=== PATIENT | female | born 1940 | race Caucasian/White ===

== ENCOUNTER 2018-11-14 20:56 | Observation (INO) ==
[2018-11-14] MEDS ORDERED: ONDANSETRON 4 MG/2 ML VIAL IV ONE (21:11)
[2018-11-14] MEDS: HYDROmorphone 2 MG/ML VIAL IV PRN ×4 (21:22→22:45)
--- NOTE | 2018-11-14 21:24 | Emergency Department Note ---
Upper Extremity HPI - General Source: patient Mode of arrival: ambulatory Limitations: no limitations <Shyam Storey - Last Filed: 11/14/18 21:44> <Sancho Thompson - Last Filed: 11/15/18 02:07> <Radha Braden - Last Filed: 11/15/18 17:51> - General Chief Complaint: Extremity Injury, Upper Stated Complaint: possible humerous fx Time Seen by Provider: 11/14/18 21:03 - History of Present Illness HPI Narrative: Reason for visit: Pt complains of upper L arm pain and injury. Mechanism of in injury is a fall in which she stumbled and fell into a coffee table. Her impact was specifically her L upper arm. She complains of 6/10 pain. This pain increases greatly with movement. Denies numbness in this distal arm. She denies injury to her other extremities. Denies pain in her L shoulder. Denies hitting her head, denies cervical pain. Pt does take eliquis for anti- coagulation. The reason is a past history of cardiac bypass surgery and occasional A-fib. Denies hx of CVA. Denies SOB, Palpations, chest pain. Denies abdominal pain, rib pain or hip pain. Pt is ambulatory and alert. (Shyam Watson) I initially discussed this case with Anson Storey nurse practitioner student and Radha ONEIL. I agree with her evaluation management documentation. We specifically discussed what we needed to do for her. At shift change the patient was checked out to me and I assume full care because her chest x-ray showed left upper opacity concerning for CHF versus pneumonia I visited with the patient some more and got further history. She denies any fever chills shortness of breath recent illness (Sancho Thompson) - Related Data Home Medications Medication Instructions Recorded Confirmed RX: Apixaban [Eliquis] 5 mg PO BID 04/24/16 11/15/18 RX: Ascorbic Acid [Vitamin C] 500 mg PO DAILY 05/03/16 11/15/18 RX: Aspirin [Adult Low Dose 81 mg PO DAILY 05/03/16 11/15/18 Aspirin EC] RX: Atorvastatin [Lipitor] 40 mg PO DAILY 05/03/16 11/15/18 RX: Calcium Carbonate [Calcium] 500 mg PO TID 05/03/16 11/15/18 RX: Cyanocobalamin (Vitamin B-12) 1,000 mcg SL DAILY 05/03/16 11/15/18 [Vitamin B-12] RX: Furosemide [Lasix] 20 mg PO DAILY 05/03/16 11/15/18 RX: Levothyroxine [Synthroid] 150 mcg PO DAILY 05/03/16 11/15/18 RX: Liothyronine [Cytomel] 5 mcg PO DAILY 05/03/16 11/15/18 RX: Losartan Potassium [Cozaar] 25 mg PO DAILY 05/03/16 11/15/18 RX: Metoprolol Tartrate 50 mg PO BID 05/03/16 11/15/18 RX: Potassium Chloride 10 meq PO DAILY 05/03/16 11/15/18 RX: Vitamin B Complex Vit C No.4 150 mg PO DAILY 05/03/16 11/15/18 [Super B Complex] RX: Vitamin D3 5,000 unit PO DAILY 05/03/16 11/15/18 Previous Rx's Medication Instructions Recorded Ciprofloxacin [Cipro] 250 mg PO BID #6 tab 11/15/18 RX: HYDROcodone/APAP 5/325MG 1 tab PO Q4HP PRN #20 tab 11/15/18 [[place] 5-325Mg] Allergies Allergy/AdvReac Type Severity Reaction Status Date / Time No Known Drug Allergies Allergy Verified 05/03/16 15:34 Review of Systems Constitutional: Denies: fever, chills, weakness Eyes: Denies: eye pain, vision change ENT ED: Denies: ear pain, dental pain Cardiovascular: Denies: chest pain, palpitations, edema Respiratory: Denies: shortness of breath Gastrointestinal: Denies: abdominal pain, nausea, vomiting Genitourinary: Denies: urgency, frequency Musculoskeletal: Reports: other (Upper L arm pain). Denies: back pain, joint pain Integumentary: Denies: rash, lesions Neurological: Denies: headache, weakness, numbness, paresthesias, confusion, diz ziness Psychiatric: Denies: anxiety Endocrine: Denies: fatigue Hematological/Lymphatic: Reports: easy bleeding, easy bruising. Denies: lymphadenopathy Allergic/Immunologic: Denies: facial swelling, urticaria <Brown,Shyam - Last Filed: 11/14/18 21:44> Past Medical History - Past Medical History Medical history: Reports: non-contributory, other (She is on blood thinners. Poor historian and does not have past medical history list with her.) Surgical history ED: Reports: non-contributory - Social History smoking status: Former smoker Alcohol use: Reports: None Drug use: Reports: none <Shyam Storey - Last Filed: 11/14/18 21:44> - Past Medical History Medical history: Reports: atrial fibrillation, hypertension, hypothyroidism, other Surgical history ED: Reports: coronary bypass (CABG) <Lyric Thompsonshua Davi - Last Filed: 11/15/18 02:07> Physical Exam Limitations: no limitations General appearance: alert Head: atraumatic, normocephalic, normal inspection Eye: Present: normal appearance, PERRL, visual harris intact. Absent: nystagmus, periorbital swelling, periorbital tenderness ENT: normal exam, normal oropharynx, mucous membranes moist Neck: Present: normal inspection. Absent: tenderness, lymphadenopathy Chest: Present: normal inspection, symmetric chest wall rise. Absent: tend erness Respiratory: Present: normal lung sounds bilaterally. Absent: respiratory distress Cardiovascular: Present: normal rhythm, tachycardia. Absent: regular rate Abdominal: Absent: tenderness, guarding Shoulder: Absent: full ROM (due to upper arm pain), laceration, ecchymosis, deformity, dislocation, tenderness over AC joint Arm: Present: tenderness (L upper arm (Humerus)), swelling, deformity. Absent: normal inspection, full ROM, erythema Elbow: Present: normal inspection. Absent: tenderness Forearm/Wrist: Present: normal inspection. Absent: tenderness, swelling Hand: Present: normal inspection. Absent: tenderness Vascular: Normal: capillary refill, radial pulse, ulnar pulse Back: Present: normal inspection. Absent: tenderness, vertebral tenderness Neurological: Present: alert, oriented X3, CN II-XII intact Psychiatric: Present: normal affect, normal mood Skin: Present: warm, dry, intact <RaleighShyam - Last Filed: 11/14/18 21:44> Course <Brian Storeyk - Last Filed: 11/14/18 21:44> <Radha Braden - Last Filed: 11/15/18 17:51> Course Narrative: Pt to receive pain medication and have xray performed. Xray results show displaced fracture. will consult MD Pt found to be tachycardic on the child monitor. Obtaining 12 lead ECG to assess rhythm. Pt denies palpations. (Shyam Storey) EKG shows patient given Cardizem bolus and started on a Cardizem drip. At 1T 153 I did speak with orthopedics, Dr. Cohen. He states this is nonsurgical, to splint with surgery sugar tong upper arm A. fib in the 160s. secure to her side. She can follow-up at the clinic outpatient to have it casted. @[address] Thompson to assume care due to shift change. Dr Weiss, hospitalist agrees to accept pt Agree with HPI, ROS, PMH, Exam, course and Plan by IRRIGATION INSTALLATION SPECIALIST student Shyam (Radha Braden) Vital Signs Temperature 98.4 F 11/14/18 20:58 Pulse Rate 135 H 11/14/18 20:58 Respiratory Rate 20 11/14/18 20:58 Blood Pressure 134/92 11/14/18 20:58 Pulse Oximetry (%) 98 11/14/18 20:58 Temperature 98.0 F 11/15/18 13:38 Pulse Rate 71 11/15/18 13:38 Respiratory Rate 17 11/15/18 13:38 Blood Pressure 121/76 11/15/18 13:38 Pulse Oximetry (%) 97 11/15/18 13:38 Extremity Injury, Upper - Lab Data Lab results reviewed: Yes I reviewed the patient's lab results. Result diagrams: 11/14/18 22:05 11/14/18 22:05 - Radiology Data Radiology results reviewed: Yes I reviewed the patient's radiology results. - EKG Data EKG attestation: Yes I reviewed and interpreted this EKG. <Sancho Thompson - Last Filed: 11/15/18 02:07> - Lab Data Result diagrams: 11/14/18 22:05 11/14/18 22:05 - Radiology Data Radiology results reviewed: Yes I reviewed the patient's radiology results. <Radha Braden - Last Filed: 11/15/18 17:51> - Lab Data Lab Results 11/14/18 11/14/18 11/14/18 Range/Units 22:05 22:05 22:05 WBC 11.6 H (4.5-11.0) K/mcL RBC 3.82 L (4.00-5.20) M/mcL Hgb 12.0 (12.0-15.0) g/dL Hct 36.2 (36.0-48.0) % MCV 94.7 (80.0-100.0) fL MCH 31.4 (26.0-34.0) pg MCHC 33.2 (31.0-36.0) g/dL RDW 13.9 (11.5-14.5) % Plt Count 242 (140-440) K/mcL MPV 10.1 (7.4-10.4) fL Gran % 71.2 (38.0-78.0) % Lymph % (Auto) 19.8 (15.5-49.0) % Emery % (Auto) 7.2 (1.0-12.0) % Eos % (Auto) 1.5 (0.0-7.0) % Baso % (Auto) 0.3 (0.0-2.0) % Gran # 8.3 H (1.8-8.0) K/mcL Lymph # (Auto) 2.3 (1.5-4.8) K/mcL Emery # (Auto) 0.8 (0.1-0.9) K/mcL Eos # (Auto) 0.2 (0.0-0.7) K/mcL Baso # (Auto) 0 (0.0-0.3) K/mcL Sodium 139 (133-145) mmol/L Potassium 4.3 (3.3-5.1) mmol/L Chloride 102 (96-108) mmol/L Carbon Dioxide 20 L (22-30) mmol/L Anion Gap 17.0 H (8-16) BUN 18 (8-23) mg/dl Creatinine 0.9 (0.6-1.1) mg/dl GFR Calculation 61 Glucose 132 H (70-105) mg/dL Calcium 8.7 (8.6-10.4) mg/dl Magnesium 1.7 (1.6-2.5) mg/dL Total Bilirubin 0.3 (0.0-1.0) mg/dL AST 28 (0-37) U/l ALT 27 (0-40) U/l Alkaline Phosphatase 95 (39-117) U/L Total Creatine Kinase 87 (24-170) IU/L CK-MB (CK-2) 3.0 H (0-2.9) ng/ml Myoglobin 113 H (25-58) ng/ml Troponin T < 0.01 (0-0.03) ng/ml NT-Pro-B Natriuret Pep (0-450) pg/ml Total Protein 6.9 (5.9-8.4) gm/dL Albumin 4.0 (3.2-5.2) gm/dL Globulin 2.9 (2.2-3.7) gm/dL Albumin/Globulin Ratio 1.4 (1.0-2.3) TSH 10.40 H (0.27-5.01) uIU/ml Thyroxine (T4) (5.0-12.0) ug/dl 11/14/18 11/14/18 Range/Units 22:05 22:05 WBC (4.5-11.0) K/mcL RBC (4.00-5.20) M/mcL Hgb (12.0-15.0) g/dL Hct (36.0-48.0) % MCV (80.0-100.0) fL MCH (26.0-34.0) pg MCHC (31.0-36.0) g/dL RDW (11.5-14.5) % Plt Count (140-440) K/mcL MPV (7.4-10.4) fL Gran % (38.0-78.0) % Lymph % (Auto) (15.5-49.0) % Emery % (Auto) (1.0-12.0) % Eos % (Auto) (0.0-7.0) % Baso % (Auto) (0.0-2.0) % Gran # (1.8-8.0) K/mcL Lymph # (Auto) (1.5-4.8) K/mcL Emery # (Auto) (0.1-0.9) K/mcL Eos # (Auto) (0.0-0.7) K/mcL Baso # (Auto) (0.0-0.3) K/mcL Sodium (133-145) mmol/L Potassium (3.3-5.1) mmol/L Chloride (96-108) mmol/L Carbon Dioxide (22-30) mmol/L Anion Gap (8-16) BUN (8-23) mg/dl Creatinine (0.6-1.1) mg/dl GFR Calculation Glucose (70-105) mg/dL Calcium (8.6-10.4) mg/dl Magnesium (1.6-2.5) mg/dL Total Bilirubin (0.0-1.0) mg/dL AST (0-37) U/l ALT (0-40) U/l Alkaline Phosphatase (39-117) U/L Total Creatine Kinase (24-170) IU/L CK-MB (CK-2) (0-2.9) ng/ml Myoglobin (25-58) ng/ml Troponin T (0-0.03) ng/ml NT-Pro-B Natriuret Pep 1837.0 H (0-450) pg/ml Total Protein (5.9-8.4) gm/dL Albumin (3.2-5.2) gm/dL Globulin (2.2-3.7) gm/dL Albumin/Globulin Ratio (1.0-2.3) TSH (0.27-5.01) uIU/ml Thyroxine (T4) 9.0 (5.0-12.0) ug/dl - Radiology Data X-ray of the left humerus shows midshaft fracture mildly displaced Chest x-ray shows left lung opacity concerning for CHF versus pneumonia. CT is ordered to further sort this out (Sancho Thompson) - EKG Data EKG results narrative: EKG shows a rate of 152 A. fib with rapid ventricular response (Sancho Thompson) Disposition <Shyam Storey - Last Filed: 11/14/18 21:44> Pt seen by IRRIGATION INSTALLATION SPECIALIST/PA only: No <Sancho Thompson - Last Filed: 11/15/18 02:07> Pt seen by IRRIGATION INSTALLATION SPECIALIST/PA only: No <Radha Braden - Last Filed: 11/15/18 17:51> Clinical Impression: Atrial fibrillation with rapid ventricular response Fracture of humerus Qualifiers: Encounter type: initial encounter Humerus Location: shaft Fracture type: closed Fracture morphology: oblique Fracture alignment: displaced Laterality: left Qualified Code(s): S42.332A - Displaced oblique fracture of shaft of humerus, left arm, initial encounter for closed fracture Summary: Patient was discussed with Dr. Agarwal, orthopedist on-call, who advised us to put her in a sugar tong humerus splint However patient was found to be in atrial fibrillation with rapid ventricular response so we started diltiazem drip after bolus given. Laboratory was ordered along with EKG chest x-ray Hospitalist, Dr. Weiss, was consulted as well and he will admit the patient for further care and evaluation of her atrial fibrillation and pneumonia here. Chest x-ray was pending at the time of her admission by Dr. Weiss. I reviewed this as she was still in the ER and chest x-ray was concerning for left upper lobe pneumonia so blood cultures were ordered and antibiotics per [facility]- [facility] antibiotiogram-that is ceftriaxone plus azithromycin for non-ICU community-acquired pneumonia. CT was ordered for further sorting out possible left upper lobe pneumonia- [facility] read on the CT scan did not show evidence of consolidating infiltrate. I briefly relayed the news to Dr. Weiss (Sancho Thompson) Disposition: Xfer As Inpt ([facility]) Condition: Good
[2018-11-14] MEDS ORDERED: DILTIAZEM 25 MG/5 ML VIAL IV ONE (21:52)
[2018-11-14] MEDS ORDERED: DILTIAZEM 125 MG in DEXTROSE 5% IN WATER 100 ML IV SCH (22:00)
--- NOTE | 2018-11-14 22:06 | Internal Med History&Physical ---
Medical - H&P: [facility] Patient information: Note initiated : 11/14/18 at 10:02 pm Service Date, if different from initiated Date: [] Patient: Destiny Zaidi a 78 y/o F admitted on for possible humerous fx. Chief Complaint: [] History of present illness: Ms. Zaidi is a 78 year old F Presents to the ER after tripping and falling on left arm resulting in left humerus fracture. During her ER visit she is found to be in A. fib RVR with rates of 160. Blood pressure was stable. She is denies chest pain or shortness of breath. Denies palpitations. Denies missing her medications. She is on Eliquis and Lopressor for her A. fib RVR. She was started on Cardizem bolus in the ED. Patient tripped over her shoe falling on her left arm. Immediate pain and deformity. Patient denies dizziness lightheadedness chest pain shortness of breath. Denies palpitations. Denies missing medications. Case is discussed with orthopedic surgery who stated nonsurgical this time and to place in a sugar tong and follow-up in the office. Admission requested for A. fib RVR on Cardizem drip. Review of Systems: Pertinent positives as above. Denies headache/fever/chills/nausea/vomiting/chest or abdominal pain/cough/dys pnea/diarrhea. Many 10 point review of system reviewed negative Medical - H&P: PMH Medical history: Medical History CABG x3 vessel Atrial fibrillation Hypothyroidism hypertension Peripheral edema Past surgical history: CABG x3 vessel Family history: Mother mother had anxiety father's history is unknown Social history: Former smoker rare alcohol lives at home with her Medical - H&P: Meds Home Medications Medication Instructions Recorded Confirmed Type Apixaban [Eliquis] 5 mg PO BID 04/24/16 05/05/16 History Ascorbic Acid [Vitamin C] 500 mg PO DAILY 05/03/16 05/05/16 History Aspirin [Adult Low Dose Aspirin EC] 81 mg PO DAILY 05/03/16 05/05/16 History Atorvastatin [Lipitor] 40 mg PO DAILY 05/03/16 05/05/16 History Calcium Carbonate [Calcium] 500 mg PO TID 05/03/16 05/05/16 History Cyanocobalamin (Vitamin B-12) 1,000 mcg SL DAILY 05/03/16 05/05/16 History [Vitamin B-12] Ferrous Sulfate 325 mg PO DAILY 05/03/16 05/05/16 History Furosemide [Lasix] 20 mg PO DAILY 05/03/16 05/05/16 History Iodine [Kelp] 75 mcg PO DAILY 05/03/16 05/05/16 History Levothyroxine [Synthroid] 150 mcg PO DAILY 05/03/16 05/05/16 History Liothyronine [Cytomel] 5 mcg PO DAILY 05/03/16 05/05/16 History Losartan Potassium [Cozaar] 25 mg PO DAILY 05/03/16 05/05/16 History Metoprolol Tartrate 50 mg PO BID 05/03/16 05/05/16 History Potassium Chloride 10 meq PO DAILY 05/03/16 05/05/16 History Vitamin B Complex Vit C No.4 150 mg PO DAILY 05/03/16 05/05/16 History [Super B Complex] Vitamin D3 5,000 unit PO DAILY 05/03/16 05/05/16 History Benzocaine/Menthol [Cepacol] 1 lozenge PO PRN PRN #0 lozenge 05/05/16 Rx Doxycycline Hyclate [Vibramycin] 100 mg PO BID #20 capsule 05/06/16 Rx HYDROcodone/APAP 5/325MG [[place] 1 tab PO Q6HP PRN #30 tablet 05/06/16 Rx 5/325Mg] Allergies Allergy/AdvReac Type Severity Reaction Status Date / Time No Known Drug Allergies Allergy Verified 05/03/16 15:34 Medical - H&P: Exam - Constitutional Vitals: Temp Pulse Resp BP Pulse Ox 98.4 F 135 H 20 134/92 98 11/14/18 20:58 11/14/18 20:58 11/14/18 20:58 11/14/18 20:58 11/14/18 20:58 Exam: General: Alert, Awake, No acute Distress Eyes/N/T: EOMI, PEERL, DMM Head/Neck: neck supple, normocephalic atraumatic CV: tachy irreg irreg, No murmurs, Pulm: Clear b/l, no wheezing/rhonchi/rales Abd: soft, nontender, +BS x4 Ext: no clubbing/cyanosis/edema to LE's, left arm in sling Neuro: Alert, no focal deficits, moves all extremities, CN 2-12 grossly intact, symmetrical strength b/l upper/lower, sensations intact b/l upper/lower Skin: warm/dry Medical - H&P: Reslt - Labs CBC & Chem 7: 11/14/18 22:05 11/14/18 22:05 - EKG Data EKG comments: 11/14/18 22:04 Displaced and angulated left humerus fracture on x-ray - Impressions Left humerus fracture Medical - H&P: A/P - Narrative A/P Narrative: A: *Afib w/rvr: *Left humerus fracture after a trip and fall ground-level: *HTN: *Hypothyroidism: * * P: -Diltiazem drip, wean off to home Lopressor -Check TSH and mag -Pending chest x-ray and labs -f/u with Ortho outpt, sugar-tong splint -Pain control - -ppx: Home Eliquis
[2018-11-14] MEDS ORDERED: cefTRIAXone 1 GM VIAL IV ONE (22:56)
[2018-11-14] MEDS ORDERED: AZITHROMYCIN 250 MG TABLET PO ONE (22:56)
[2018-11-14 23:05] LABS: Basophils # (Auto) 0 K/mcL (0.0-0.3); Basophils % (Auto) 0.3 % (0.0-2.0); Eosinophils # (Auto) 0.2 K/mcL (0.0-0.7); Eosinophils % (Auto) 1.5 % (0.0-7.0); Granulocytes % (Auto) 71.2 % (38.0-78.0); Hematocrit 36.2 % (36.0-48.0); Lymphocytes # (Auto) 2.3 K/mcL (1.5-4.8); Lymphocytes % (Auto) 19.8 % (15.5-49.0); Mean Cell Volume 94.7 fL (80.0-100.0); Mean Corpuscular HGB Conc 33.2 g/dL (31.0-36.0); Mean Platelet Volume 10.1 fL (7.4-10.4); Monocytes # (Auto) 0.8 K/mcL (0.1-0.9); Monocytes % (Auto) 7.2 % (1.0-12.0); Platelet Count 242 K/mcL (140-440); RBC 3.82 M/mcL (4.00-5.20); Red Cell Distribution Width 13.9 % (11.5-14.5); WBC 11.6 K/mcL (4.5-11.0)
[2018-11-14] MEDS ORDERED: HYDROmorphone 2 MG/ML VIAL IV PRN (23:23)
[2018-11-14 23:30] LABS: Myoglobin 113 ng/ml (25-58)
[2018-11-14 23:44] LABS: ALT/SGPT 27 U/l (0-40); AST/SGOT 28 U/l (0-37); Albumin/Globulin Ratio 1.4 (1.0-2.3); Alkaline Phosphatase 95 U/L (39-117); Bilirubin,Total 0.3 mg/dL (0.0-1.0); Blood Urea Nitrogen 18 mg/dl (8-23); Calcium 8.7 mg/dl (8.6-10.4); Carbon Dioxide 20 mmol/L (22-30); Chloride 102 mmol/L (96-108); Creatine Kinase 87 IU/L (24-170); Globulin 2.9 gm/dL (2.2-3.7); Glomerular Filtration Rate 61; Glucose 132 mg/dL (70-105); Magnesium 1.7 mg/dL (1.6-2.5); Potassium 4.3 mmol/L (3.3-5.1); Sodium 139 mmol/L (133-145)
[2018-11-15] MEDS ORDERED: POTASSIUM CHLORIDE 40 MEQ in DEXTROSE 5% IN WATER 500 ML IV PRN (00:24)
[2018-11-15] MEDS ORDERED: MAGNESIUM SULFATE 2 GM/50 ML BAG IV PRN (00:24)
[2018-11-15] MEDS ORDERED: SENNOSIDES 1 TABLET PO PRN (00:24)
[2018-11-15] MEDS ORDERED: ACETAMINOPHEN 325 MG TABLET PO PRN (00:24)
[2018-11-15] MEDS ORDERED: diphenhydrAMINE 25 MG CAPSULE PO PRN (00:24)
[2018-11-15] MEDS ORDERED: IPRATROPIUM/ALBUTEROL 3 ML AMPUL.NEB NEB PRN (00:24)
[2018-11-15] MEDS ORDERED: POTASSIUM CHLORIDE 20 MEQ TABLET PO PRN ×2 (00:24)
[2018-11-15] MEDS ORDERED: ONDANSETRON 4 MG/2 ML VIAL IV PRN (00:24)
[2018-11-15] MEDS ORDERED: LACTULOSE 20 GM/30 ML ORAL.SOL PO PRN (00:24)
[2018-11-15] MEDS ORDERED: 0.9 % SODIUM CHLORIDE 1,000 ML IV SCH (00:24)
[2018-11-15] MEDS ORDERED: METOCLOPRAMIDE 10 MG/2 ML VIAL IV PRN (00:24)
[2018-11-15] MEDS ORDERED: POLYETHYLENE GLYCOL 3350 17 GM PACKET PO PRN (00:24)
[2018-11-15] MEDS ORDERED: PROCHLORPERAZINE 10 MG/2 ML VIAL IV PRN (00:24)
[2018-11-15] MEDS ORDERED: IOPAMIDOL 100 ML BOTTLE IV ONE (00:31)
[2018-11-15] MEDS ORDERED: diphenhydrAMINE 25 MG CAPSULE ONE (00:33)
[2018-11-15] MEDS ORDERED: METOPROLOL TARTRATE 50 MG TABLET ONE (00:33)
[2018-11-15] MEDS: MELATONIN 3 MG TABLET PO ONE ×2 (00:58→02:24)
[2018-11-15] MEDS: METOPROLOL TARTRATE 50 MG TABLET PO SCH ×2 (00:59→09:17)
[2018-11-15] MEDS: diphenhydrAMINE 25 MG CAPSULE PO ONE ×2 (00:59→02:24)
[2018-11-15] MEDS ORDERED: HYDROcodone/APAP 5/325MG TABLET PO ONE (02:40)
[2018-11-15] MEDS: HYDROcodone/APAP 5/325MG TABLET PO PRN ×2 (02:41→09:16)
--- NOTE | 2018-11-15 05:54 | Cat Scan Report ---
CLINICAL INFORMATION: pneumonia COMPARISON: Chest x-ray dated 11/14/2018 TECHNIQUE: Axial contrast enhanced images through the chest. Sagittally and coronally reformatted images. MIP reformatted images. 80 mL contrast material injected intravenously. FINDINGS: Suboptimal examination due to shallow inspiration and inability to suspend respiration. Low volume lungs. There is mild left lower lobe, not basilar atelectasis. There is no consolidation. No CT evidence for pneumonia. There is no pulmonary parenchymal mass or significant emphysematous change. Main pulmonary artery, right pulmonary artery, left pulmonary artery are negative. No intraluminal filling defects. No lobar or segmental abnormalities. Previous median sternotomy. There is extensive coronary artery calcification. There is generalized cardiomegaly. There is only mild reflux of contrast material into the inferior vena cava. There is no pleural effusion. There is no pericardial effusion. There is right convex thoracic scoliosis. No acute thoracic compression fracture. Upper abdomen is negative. There is a benign right renal cyst measuring 14 mm. There is calcification at the origin of both renal arteries and stenosis is suspected. Examination was initially interpreted by [facility] IMPRESSION: 1. Limited evaluation. No pulmonary embolism identified. 2. No focal pulmonary parenchymal infiltrate or mass The exam was performed using radiation dose optimization techniques including, but not limited to, automated exposure control, adjustment of the mA and/or kV according to patient size and use of iterative reconstruction technique. Interpreted and Authenticated by: Broderick Pandya 11/15/18
[2018-11-15] MEDS ORDERED: 0.9 % SODIUM CHLORIDE 10 ML SYRINGE IV SCH (06:00)
--- NOTE | 2018-11-15 06:06 | XRay Report ---
INDICATION: Chest pain TECHNIQUE: AP chest x-ray,portable semiupright COMPARISON: None FINDINGS:Previous median sternotomy. There is thoracolumbar scoliosis. Inspiration is less than optimal. No focal pulmonary parenchymal consolidation. There is cardiomegaly. No definite pulmonary edema. No evidence for pleural effusion. IMPRESSION: 1. Cardiomegaly. No detectable pulmonary edema 2. No focal pulmonary parenchymal infiltrate Interpreted and Authenticated by: Broderick Pandya 11/15/18
--- NOTE | 2018-11-15 06:14 | XRay Report ---
CLINICAL INFORMATION: Arm injury TECHNIQUE: 2 view left humerus COMPARISON: None. FINDINGS: Orthogonal views were not obtained. Spiral fracture of the left humeral diaphysis. There is lateral angulation and displacement. Left humeral head appears intact. No glenohumeral dislocation. IMPRESSION: 1. Spiral fracture of the left humeral diaphysis 2. Lateral displacement and angulation Interpreted and Authenticated by: Broderick Pandya 11/15/18
--- NOTE | 2018-11-15 07:23 | Internal Med Progress Note ---
Medical - PN: Subj Patient information: Note initiated : 11/15/18 at 7:15 am Service Date, if different from initiated Date: [] Patient: Destiny Zaidi a 78 y/o F admitted on 11/15/18 for possible humerous fx. Chief Complaint: [] Interval history: Ms. Zaidi is a 78 year old F Presents to the ER after tripping and falling on left arm resulting in left humerus fracture. During her ER visit she is found to be in A. fib RVR with rates of 160. Blood pressure was stable. She is denies chest pain or shortness of breath. Denies palpitations. Denies missing her medications. She is on Eliquis and Lopressor for her A. fib RVR. She was started on Cardizem bolus in the ED. Patient tripped over her shoe falling on her left arm. Immediate pain and deformity. Patient denies dizziness lightheadedness chest pain shortness of breath. Denies palpitations. Denies missing medications. Case is discussed with orthopedic surgery who stated nonsurgical this time and to place in a sugar tong and follow-up in the office. Admission requested for A. fib RVR on Cardizem drip. 11/15 Feeling better this morning. Left arm pain relatively controlled. She was hypoxic leaving the ED last night. However she did get 1/2 mg of Dilaudid during the evening and this morning she is been on room air for the past couple hours doing well. Diltiazem drip was stopped early this morning with rates controlled at this time. Nurse ran urinalysis because of foul odor in her urine. Review of Systems: denies headache/fever/chills/nausea/vomiting/chest or abdominal pain/cough/dyspnea/diarrhea. Otherwise see above. - Constitutional Vitals: Vital Signs Temp Pulse Resp BP Pulse Ox 98.0 F 43 L 25 H 101/52 98 11/15/18 04:02 11/15/18 05:01 11/15/18 05:01 11/15/18 05:01 11/15/18 05:01 Period Temp Pulse Resp BP Sys/Gray Pulse Ox Last 24 Hr 97.4 F-98.4 F 31-156 9-38 84-136/48-97 74-98 Intake and Output 11/14/18 11/15/18 11/15/18 21:59 05:59 13:59 Intake Total 37 Balance 37 Weight 73.482 kg 72.983 kg Intake & Output: Intake & Output 11/14/18 11/15/18 11/15/18 21:59 05:59 13:59 Intake Total 37 Balance 37 Weight 73.482 kg 72.983 kg Intake: IV 37 Cardizem 125 mg In Dextrose 5% 6 in Water 100 ml @ 5 MG/HR 5 mls /hr IV Q12H [facility] Rx#:[id number] Exam: General: Alert, Awake, No acute Distress Eyes/N/T: EOMI, Head/Neck: neck supple, CV: irreg irreg, No murmurs, Pulm: Clear b/l, no wheezing/rhonchi/rales Abd: soft, nontender, +BS x4 Ext: no clubbing/cyanosis/edema, left arm in sling Neuro: Alert, no focal deficits, moves all extremities, Skin: warm/dry Medical - PN: Obj Da - Labs CBC & Chem 7: 11/14/18 22:05 11/14/18 22:05 Labs: Abnormal Lab Results 11/14/18 11/14/18 11/14/18 22:05 22:05 22:05 WBC 11.6 H RBC 3.82 L Gran # 8.3 H Carbon Dioxide 20 L Anion Gap 17.0 H Glucose 132 H CK-MB (CK-2) 3.0 H Myoglobin 113 H NT-Pro-B Natriuret Pep 1837.0 H TSH 10.40 H Meds: Medications Acetaminophen (Tylenol) 650 mg PO Q6HP PRN PRN Reason: PAIN/FEVER > 101 Hydrocodone Bitart/Acetaminophen ([place] 5/325mg) 1 tab PO Q4HP PRN PRN Reason: PAIN LEVEL 3-6 Last Admin: 11/15/18 02:41 Dose: 1 tab Documented by: Albuterol/Ipratropium (Duoneb) 3 ml NEB Q4HP PRN PRN Reason: Shortness Of Breath Diphenhydramine HCl (Benadryl) 50 mg PO HSP PRN PRN Reason: Insomnia Docusate Sodium (Colace) 100 mg PO BID [facility] Diltiazem HCl 125 mg/ Dextrose 125 mls @ 5 mls/hr IV Q12H [facility]; Protocol Potassium Chloride 40 meq/ (Dextrose) 520 mls @ 130 mls/hr IV UD PRN PRN Reason: Potassium < 3 Magnesium Sulfate (Magnesium Sulfate) 2 gm in 50 mls @ 50 mls/hr IV UD PRN PRN Reason: Magnesium </= 1.6 Sodium Chloride (Sodium Chloride 0.9%) 1,000 mls @ 75 mls/hr IV .[id number] [facility] Stop: 11/15/18 13:43 Last Admin: 11/15/18 00:55 Dose: 75 mls/hr Documented by: Lactulose (Cephulac) 10 gm PO DAILYP PRN PRN Reason: Constipation Metoclopramide HCl (Reglan) 10 mg IV Q6HP PRN PRN Reason: Nausea And Vomiting Metoprolol Tartrate (Lopressor) 50 mg PO BID [facility] Last Admin: 11/15/18 00:59 Dose: 50 mg Documented by: Morphine Sulfate (Morphine) 0 mg IV Q3HP PRN PRN Reason: Pain Ondansetron HCl (Zofran) 4 mg IV Q4HP PRN PRN Reason: Nausea And Vomiting Polyethylene Glycol (Miralax) 17 gm PO DAILYP PRN PRN Reason: Constipation Potassium Chloride (Kdur) 40 meq PO UD PRN PRN Reason: Potassium is 3-3.5 Potassium Chloride (Kdur) 40 meq PO UD PRN PRN Reason: Potassium < 3 Prochlorperazine (Compazine) 10 mg IV Q6HP PRN PRN Reason: Nausea And Vomiting Senna (Senokot) 2 tab PO HSP PRN PRN Reason: Constipation Sodium Chloride (Saline Flush) 10 ml IV Q8 [facility] Last Admin: 11/15/18 05:45 Dose: 10 ml Documented by: Medical - PN: A/P - Time Spent With Patient Total time spent is greater than 50% in coordination of care (as documented) at patient's floor/unit and/or counseling patient: - Narrative A/P Narrative: A: *Afib w/rvr: now rate controlled -dilt gtt off -tsh high, mag wnl *acute hypoxic resp failure when leaving ED: 2/ IV narcotics -CT chest unremarkable, -on room air with good sats this morning *Left humerus fracture after a trip and fall ground-level: *HTN: *Hypothyroidism: * P: -Diltiazem drip weaned off to home Lopressor -Check T4 -f/u with Ortho outpt, sugar-tong splint -Pain control -med clarification -f/u with PCP regarding thyroid labs -ppx: Home Eliquis
[2018-11-15] MEDS ORDERED: POTASSIUM CHLORIDE 10 MEQ TABLET PO SCH (08:00)
[2018-11-15] MEDS ORDERED: CALCIUM CARBONATE 500 MG TAB.CHEW PO SCH (09:00)
[2018-11-15] MEDS ORDERED: LEVOTHYROXINE 150 MCG TABLET PO SCH (09:00)
[2018-11-15] MEDS ORDERED: ATORVASTATIN 20 MG TABLET PO SCH (09:00)
[2018-11-15] MEDS ORDERED: LIOTHYRONINE 5 MCG TABLET PO SCH (09:00)
[2018-11-15] MEDS ORDERED: FUROSEMIDE 20 MG TABLET PO SCH (09:00)
[2018-11-15] MEDS ORDERED: DOCUSATE SODIUM 100 MG CAPSULE PO SCH (09:00)
[2018-11-15] MEDS ORDERED: METOPROLOL TARTRATE 50 MG PO SCH (09:00)
[2018-11-15] MEDS ORDERED: LOSARTAN 25 MG TABLET PO SCH (09:00)
[2018-11-15] MEDS ORDERED: MAGNESIUM SULFATE 8.12 MEQ in DEXTROSE 5% IN WATER 50 ML IV ONE (09:11)
[2018-11-15] MEDS ORDERED: DILTIAZEM 125 MG in DEXTROSE 5% IN WATER 100 ML IV SCH (10:00)
[2018-11-15 10:05] LABS: Appearance,Urine CLEAR; Bacteria,Urine 0 /hpf (0); Bilirubin,Urine NEG (NEG); Color,Urine YELLOW; Culture Indicated,Urine NO; Glucose,Urine (UA) NEGATIVE (NEG); Ketones,Urine NEG (NEG); Leukocyte Esterase,Urine 250 /uL (NEG); Mucus,Urine FEW /hpf (0); Nitrate,Urine NEG (NEG); Protein,Urine 30 mg/dL (NEG); Urine Blood NEG mg/dL (<0.03); Urine RBC 1 /hpf (0-1); Urine Squamous Epithelial Cell 7 /hpf (0-4); Urine WBC 13 /hpf (0-4); Urobilinogen,Urine NEG (NEG)
--- NOTE | 2018-11-15 10:17 | Discharge Summary ---
Medical - DS: Prov Patient information: Note initiated : 11/15/18 at 10:13 am Service Date, if different from initiated Date: [] Patient: Destiny Zaidi 78 y/o F admitted on 11/15/18 for possible humerous fx. Chief Complaint: [] Date of admission: 11/15/18 00:24 Discharge date: 11/15/18 Primary care physician: Adina Driver Consults: 11/14/18 Consult to Physician [CONS] Stat Comment: Consulting Provider: Evaristo Agarwal Reason For Exam: Physician to Consult Medical - DS: Meds - Discharge Medications Prescriptions: Ciprofloxacin [Cipro] 250 mg PO BID #6 tab HYDROcodone/APAP 5/325MG [[place] 5-325Mg] 1 tab PO Q4HP PRN #20 tab PRN Reason: Pain Level 3-6 Active and Home Medications: Home Medications Apixaban [Eliquis] 5 mg PO BID 04/24/16 [History Confirmed 11/15/18 Last Taken 05/04/16] Ascorbic Acid [Vitamin C] 500 mg PO DAILY 05/03/16 [History Confirmed 11/15/18 Last Taken 05/04/16] Aspirin [Adult Low Dose Aspirin EC] 81 mg PO DAILY 05/03/16 [History Confirmed 11/15/18 Last Taken 05/04/16] Atorvastatin [Lipitor] 40 mg PO DAILY 05/03/16 [History Confirmed 11/15/18 Last Taken 05/04/16] Calcium Carbonate [Calcium] 500 mg PO TID 05/03/16 [History Confirmed 11/15/18 Last Taken 05/04/16] Cyanocobalamin (Vitamin B-12) [Vitamin B-12] 1,000 mcg SL DAILY 05/03/16 [History Confirmed 11/15/18 Last Taken 05/04/16] Furosemide [Lasix] 20 mg PO DAILY 05/03/16 [History Confirmed 11/15/18 Last Taken 05/04/16] Levothyroxine [Synthroid] 150 mcg PO DAILY 05/03/16 [History Confirmed 11/15/18 Last Taken 05/04/16] Liothyronine [Cytomel] 5 mcg PO DAILY 05/03/16 [History Confirmed 11/15/18 Last Taken 05/04/16] Losartan Potassium [Cozaar] 25 mg PO DAILY 05/03/16 [History Confirmed 11/15/18 Last Taken 05/05/16] Metoprolol Tartrate 50 mg PO BID 05/03/16 [History Confirmed 11/15/18 Last Taken 05/05/16] Potassium Chloride 10 meq PO DAILY 05/03/16 [History Confirmed 11/15/18 Last Taken 05/04/16] Vitamin B Complex Vit C No.4 [Super B Complex] 150 mg PO DAILY 05/03/16 [History Confirmed 11/15/18 Last Taken 05/04/16] Vitamin D3 5,000 unit PO DAILY 05/03/16 [History Confirmed 11/15/18 Last Taken 05/04/16] Home Medications Apixaban [Eliquis] 5 mg PO BID 04/24/16 [History Confirmed 11/15/18 Last Taken 05/04/16] Ascorbic Acid [Vitamin C] 500 mg PO DAILY 05/03/16 [History Confirmed 11/15/18 Last Taken 05/04/16] Aspirin [Adult Low Dose Aspirin EC] 81 mg PO DAILY 05/03/16 [History Confirmed 11/15/18 Last Taken 05/04/16] Atorvastatin [Lipitor] 40 mg PO DAILY 05/03/16 [History Confirmed 11/15/18 Last Taken 05/04/16] Calcium Carbonate [Calcium] 500 mg PO TID 05/03/16 [History Confirmed 11/15/18 Last Taken 05/04/16] Cyanocobalamin (Vitamin B-12) [Vitamin B-12] 1,000 mcg SL DAILY 05/03/16 [History Confirmed 11/15/18 Last Taken 05/04/16] Furosemide [Lasix] 20 mg PO DAILY 05/03/16 [History Confirmed 11/15/18 Last Taken 05/04/16] Levothyroxine [Synthroid] 150 mcg PO DAILY 05/03/16 [History Confirmed 11/15/18 Last Taken 05/04/16] Liothyronine [Cytomel] 5 mcg PO DAILY 05/03/16 [History Confirmed 11/15/18 Last Taken 05/04/16] Losartan Potassium [Cozaar] 25 mg PO DAILY 05/03/16 [History Confirmed 11/15/18 Last Taken 05/05/16] Metoprolol Tartrate 50 mg PO BID 05/03/16 [History Confirmed 11/15/18 Last Taken 05/05/16] Potassium Chloride 10 meq PO DAILY 05/03/16 [History Confirmed 11/15/18 Last Taken 05/04/16] Vitamin B Complex Vit C No.4 [Super B Complex] 150 mg PO DAILY 05/03/16 [History Confirmed 11/15/18 Last Taken 05/04/16] Vitamin D3 5,000 unit PO DAILY 05/03/16 [History Confirmed 11/15/18 Last Taken 05/04/16] Ciprofloxacin [Cipro] 250 mg PO BID #6 tab 11/15/18 [Rx Last Taken Unknown] HYDROcodone/APAP 5/325MG [[place] 5-325Mg] 1 tab PO Q4HP PRN #20 tab 11/15/18 [Rx Last Taken Unknown] Medical - DS: Hosp Hospital course: Ms. Zaidi is a 78 year old F Presents to the ER after tripping and falling on left arm resulting in left humerus fracture. During her ER visit she is found to be in A. fib RVR with rates of 160. Blood pressure was stable. She is denies chest pain or shortness of breath. Denies palpitations. Denies missing her medications. She is on Eliquis and Lopressor for her A. fib RVR. She was started on Cardizem bolus in the ED. Patient tripped over her shoe falling on her left arm. Immediate pain and deformity. Patient denies dizziness lightheadedness chest pain shortness of breath. Denies palpitations. Denies missing medications. Case is discussed with orthopedic surgery who stated nonsurgical this time and to place in a sugar tong and follow-up in the office. Admission requested for A. fib RVR on Cardizem drip. 11/15 Feeling better this morning. Left arm pain relatively controlled. She was hypoxic leaving the ED last night. However she did get 1/2 mg of Dilaudid during the evening and this morning she is been on room air for the past couple hours doing well. Diltiazem drip was stopped early this morning with rates controlled at this time. Nurse ran urinalysis because of foul odor in her urine. Discharge diagnosis: A. fib RVR left humerus fracture after trip and fall uti Secondary discharge diagnosis: Hypertension hypothyroidism - Time Spent with Patient Total time spent providing and/or coordinating discharge services: Greater than 30 minutes Medical - DS: Exam - Constitutional Vitals: Vital Signs Temp Pulse Resp BP Pulse Ox 11/15/18 07:01 97.3 F 80 12 105/56 98 11/15/18 05:01 43 L 25 H 101/52 98 11/15/18 04:47 59 L 13 114/66 93 11/15/18 04:43 39 L 15 84/48 94 11/15/18 04:16 32 L 10 L 95/53 96 11/15/18 04:02 98.0 F 55 L 10 L 102/69 95 11/15/18 03:46 53 L 100/65 95 11/15/18 03:32 56 L 94/62 96 11/15/18 03:16 68 117/66 96 11/15/18 03:01 31 L 19 104/65 95 11/15/18 02:46 73 18 104/66 94 11/15/18 02:31 76 12 111/68 94 11/15/18 02:16 66 18 113/63 95 11/15/18 02:01 75 21 125/65 85 L 11/15/18 01:46 77 18 111/72 93 11/15/18 01:32 137 H 25 H 118/66 95 11/15/18 01:16 89 9 L 129/79 93 11/15/18 01:01 70 25 H 125/75 94 11/15/18 00:46 74 11 L 110/68 87 L 11/15/18 00:44 97.4 F 109 H 11 L 123/80 74 L 11/15/18 00:24 74 L 11/15/18 00:03 107 H 11 L 98 11/15/18 00:01 123 H 19 108/77 96 11/14/18 23:31 143 H 19 117/83 96 11/14/18 23:22 120 H 38 H 95 11/14/18 23:01 93 H 15 104/67 97 11/14/18 22:31 92 H 18 126/87 96 11/14/18 22:12 94 H 15 90 11/14/18 22:01 156 H 15 135/89 92 11/14/18 21:35 150 H 12 136/97 95 11/14/18 20:58 98.4 F 135 H 20 134/92 98 Intake and Output 11/14/18 11/15/18 11/15/18 21:59 05:59 13:59 Intake Total 37 Output Total 250 Balance 37 -250 Intake: IV 37 Cardizem 125 mg In Dextrose 5% 6 in Water 100 ml @ 5 MG/HR 5 mls /hr IV Q12H [facility] Rx#:[id number] Output: Void Amount 250 Other: Weight 73.482 kg 72.983 kg Medical - DS: Data Labs on day of discharge: Labs from last 24 hours 11/15/18 11/14/18 11/14/18 07:54 22:05 22:05 WBC RBC Hgb Hct MCV MCH MCHC RDW Plt Count MPV Gran % Lymph % (Auto) [place] % (Auto) Eos % (Auto) Baso % (Auto) Gran # Lymph # (Auto) [place] # (Auto) Eos # (Auto) Baso # (Auto) Sodium Potassium Chloride Carbon Dioxide Anion Gap BUN Creatinine GFR Calculation Glucose Calcium Magnesium Total Bilirubin AST ALT Alkaline Phosphatase Total Creatine Kinase CK-MB (CK-2) Myoglobin Troponin T NT-Pro-B Natriuret Pep 1837.0 H Total Protein Albumin Globulin Albumin/Globulin Ratio TSH Thyroxine (T4) 9.0 Urine Color Yellow Urine Appearance Clear Urine pH 5.0 Ur Specific [place] 1.010 Urine Protein 30 A Urine Glucose (UA) Negative Urine Ketones Neg Urine Occult Blood Neg Urine Nitrate Neg Urine Bilirubin Neg Urine Urobilinogen Neg Ur Leukocyte Esterase 250 A Urine RBC 1 Urine WBC 13 H Ur Squamous Epith Cells 7 H Urine Bacteria 0 Urine Mucus Few Ur Culture Indicated? No 11/14/18 11/14/18 11/14/18 22:05 22:05 22:05 WBC 11.6 H RBC 3.82 L Hgb 12.0 Hct 36.2 MCV 94.7 MCH 31.4 MCHC 33.2 RDW 13.9 Plt Count 242 MPV 10.1 Gran % 71.2 Lymph % (Auto) 19.8 [place] % (Auto) 7.2 Eos % (Auto) 1.5 Baso % (Auto) 0.3 Gran # 8.3 H Lymph # (Auto) 2.3 [place] # (Auto) 0.8 Eos # (Auto) 0.2 Baso # (Auto) 0 Sodium 139 Potassium 4.3 Chloride 102 Carbon Dioxide 20 L Anion Gap 17.0 H BUN 18 Creatinine 0.9 GFR Calculation 61 Glucose 132 H Calcium 8.7 Magnesium 1.7 Total Bilirubin 0.3 AST 28 ALT 27 Alkaline Phosphatase 95 Total Creatine Kinase 87 CK-MB (CK-2) 3.0 H Myoglobin 113 H Troponin T < 0.01 NT-Pro-B Natriuret Pep Total Protein 6.9 Albumin 4.0 Globulin 2.9 Albumin/Globulin Ratio 1.4 TSH 10.40 H Thyroxine (T4) Urine Color Urine Appearance Urine pH Ur Specific [place] Urine Protein Urine Glucose (UA) Urine Ketones Urine Occult Blood Urine Nitrate Urine Bilirubin Urine Urobilinogen Ur Leukocyte Esterase Urine RBC Urine WBC Ur Squamous Epith Cells Urine Bacteria Urine Mucus Ur Culture Indicated? Medical - DS: A/P - Patient/Caregiver Discharge Instructions Activity: as per physical therapy, increase activity as tolerated Diet: Regular Diet Prescriptions: Ciprofloxacin [Cipro] 250 mg PO BID #6 tab HYDROcodone/APAP 5/325MG [[place] 5-325Mg] 1 tab PO Q4HP PRN #20 tab PRN Reason: Pain Level 3-6 - Follow up Plan Follow up with: Evaristo Agarwal MD [Physician] - Adina Driver [Primary Care Provider] - Disposition: Home, Self-Care Prognosis: Good Rehab Potential: Fair
[2018-11-15] MEDS ORDERED: APIXABAN 5 MG TABLET PO SCH (21:00)
== END 2018-11-15 13:38 | disposition home or self-care (01) ==
LOC: ED 20:56 → INTOOBSV 11-15 00:24 → ICU 11-15 00:24
PROVIDERS: ADMIT Internal Medicine; ATTEND Internal Medicine